=== PATIENT | male | born 1960 ===

== ENCOUNTER 2024-08-04 10:09 | Day surgery (SDC) | payer OTHER ==
[2024-08-04] VITALS (11 sets, daily range): BP systolic 118–146; BP diastolic 71–90
[~2024-08-04] VITALS: Ht 177.8 cm; Wt 113.0 kg
[2024-08-04] MEDS ORDERED: Nitroglycerin 2 MG/20 ML BTL ONE (10:23)
[2024-08-04] MEDS ORDERED: Verapamil HCL 2.5 MG/ML 2ML Injection ONE (10:23)
[2024-08-04] MEDS ORDERED: NS 250 ML IV ONE (10:23)
[2024-08-04] MEDS ORDERED: NS 1,000 ML IV ONE ×2 (10:23→10:59)
[2024-08-04] MEDS ORDERED: Heparin Sodium 1000 Units/ML 10ML MDV ONE ×2 (10:23→11:59)
[2024-08-04] MEDS ORDERED: METF500 PO (10:50)
[2024-08-04] MEDS ORDERED: ATOR80 PO (10:50)
[2024-08-04] MEDS ORDERED: OZEMPIC2 MG/0.75 SQ (10:51)
[2024-08-04] MEDS ORDERED: METO25ER PO (10:51)
[2024-08-04] MEDS ORDERED: EFFIENT10 MG PO (10:52)
[2024-08-04] MEDS ORDERED: SILD50TA PO (10:53)
[2024-08-04] MEDS ORDERED: LISI20 PO (10:54)
[2024-08-04] MEDS ORDERED: JARDIANCE25 MG PO (10:54)
[2024-08-04] MEDS ORDERED: PIOG15 PO (10:55)
[2024-08-04] MEDS ORDERED: FENO160 PO (10:55)
[2024-08-04] MEDS ORDERED: FentaNYL Citrate 50 MCG/ML 2 ML Injection ONE (10:59)
[2024-08-04] MEDS ORDERED: Midazolam HCl 1MG / ML 2ML Vial ONE (10:59)
[2024-08-04] MEDS ORDERED: prasugrel HCL 10 MG TABLET PO ONE (11:20)
[2024-08-04] MEDS ORDERED: Aspirin 81 MG Chew PO ONE (11:20)
[2024-08-04] MEDS ORDERED: Phenylephrine HCl 100 MCG/ML-NS 10MLSYR (1MG/10ML) ONE (11:45)
--- NOTE | 2024-08-04 12:36 | NUR ---
[facility]. A&O, TR band in place, no hematoma, no bleeding site soft and nontender.
--- NOTE | 2024-08-04 13:40 | NUR ---
right radial site soft, no hematoma, no bleeding right forearm firm and swollen. August RT here to assess and Dr Rendon texted.
--- NOTE | 2024-08-04 13:45 | NUR ---
Dr Vásquez here to assess forearm, blood pressure cuff applied to foerearm by Dr Rendon
--- NOTE | 2024-08-04 14:18 | NUR ---
blood pressure cuff pressure reduced and then removed. forearm still swollen, but tissue is softer, placed coban lightely to forearm.
--- NOTE | 2024-08-04 15:10 | NUR ---
started removing air from Tr Band
--- NOTE | 2024-08-04 15:43 | NUR ---
right radial site remains soft ,nontender,no swelling, no bleeding air is totally removed from TR band
--- NOTE | 2024-08-04 16:00 | NUR ---
Dr Infante in to asses right forearm
--- NOTE | 2024-08-04 16:15 | NUR ---
Dr gonsalez in to assess right forearm and answer final questions about medications
--- NOTE | 2024-08-04 16:25 | NUR ---
patient and verbalized understanding if discahrge instructions and precautions, no further questions. right radial artery site TR band removed cloth dot placed. no hematoma, no bleeding, soft and nontender. wristboard placed. pt given ice pack to place over right forearm per Dr Esposito order. pt discharged home, driving, ambulated to car.
--- NOTE | 2024-08-04 16:30 | NUR ---
right forearm, is not as firm as initially assessed, softer and no pain. Pt will place ice pack that was privided to arm on his way home as directed by Dr Rendon
== END 2024-08-04 16:00 | disposition home or self-care (01) ==
LOC: MHTC 10:09
DX: I25.10 Atherosclerotic heart disease of native coronary artery without angina pectoris (principal); I25.82 Chronic total occlusion of coronary artery; I25.2 Old myocardial infarction; E11.9 Type 2 diabetes mellitus without complications; E78.1 Pure hyperglyceridemia; I10 Essential (primary) hypertension; G47.33 Obstructive sleep apnea (adult) (pediatric); E66.01 Morbid (severe) obesity due to excess calories; Z68.35 Body mass index [BMI] 35.0-35.9, adult
CPT/HCPCS: 76937; 85347; 93458; 93571; 99152; 99153; A9270; C1769; C1887; C1894; J1644; J2250; J2371; J3010; J7030; J7050; Q9967